=== PATIENT | female | born 1995 | race American Indian/Alaskan Native ===

== ENCOUNTER 2017-08-25 12:49 | Outpatient (CLI) | payer OTHER ==
--- NOTE | 2017-08-25 15:25 | Fluoroscopy Report ---
FLUORO GUIDED HSG INDICATION: Fertility testing. COMPARISON: None similar at this institution. FINDINGS: Hysterosalpingogram performed with cervix cannulated using standard sterile precautions. 10 images obtained. Preliminary radiograph demonstrates no significant abnormality. Injection of 11 cc of Omnipaque-300 under fluoroscopy demonstrates normal uterine cavity/contours. Prompt opacification of normal caliber fallopian tubes with free intraperitoneal spill noted bilaterally. CONCLUSION: Normal exam with patent bilateral fallopian tubes, as described. Thank you for the opportunity to participate in this patient's care.
== END 2017-08-25 12:50 | disposition home or self-care (01) ==
LOC: FLUORO 12:49
PROVIDERS: ATTEND Obstetrics & Gynecology
DX: Z31.41 Encounter for fertility testing (principal)
CPT/HCPCS: 58340; 74740; Q9967